=== PATIENT | female | born 1955 | race Two or more races ===

== ENCOUNTER 2024-03-19 17:16 | Emergency (ER) | payer OTHER ==
[~2024-03-19] VITALS: Ht 154.9 cm; Wt 72.6 kg
[~2024-03-19 17:16] MED LIST: BREO ELLIPTA 21 EACH IH; CRESTOR10 MG PO; LEVO-T50 MCG PO; MONTELUKAST SOD10 MG PO; PEPCID40 MG PO; PERCOCET 5-3251 EACH PO; PROTONIX20 MG PO; RAYOS1 MG; VENTOLIN HFA18 GM IH; ZYRTEC10 M3 PO
[2024-03-19] MEDS ORDERED: HORIZANT300 MG (17:58)
[2024-03-19] MEDS ORDERED: 0.9 % SODIUM CHLORIDE 500 ML IV ONE (20:30)
[2024-03-19] MEDS ORDERED: FAMOTIDINE/PF 20 MG/2 ML VIAL IV ONE (20:30)
[2024-03-19] MEDS ORDERED: KETOROLAC TROMETHAMINE 30 MG VIAL IV ONE (20:30)
[2024-03-19] MEDS ORDERED: FAMOTIDINE/PF 20 MG/2 ML VIAL ONE (20:52)
[2024-03-19] MEDS ORDERED: KETOROLAC TROMETHAMINE 30 MG VIAL ONE (20:52)
[2024-03-19 21:23] LABS: HEMATOCRIT 39.4 % (36.0-45.00); HEMOGLOBIN 13.1 g/dL (12.0-15.00); MEAN CELL VOLUME 102.1 fL (80.00-100.00); MEAN CORPUSCULAR HGB CONC 33.3 g/dl (32.0-36.0); PLATELET COUNT 438 K/uL (150-450); RED BLOOD COUNT 3.86 M/uL (4.00-6.00); RED CELL DISTRIBUTION WIDTH 14.1 % (11.5-14.5)
[2024-03-19 21:57] LABS: PH,URINE 5.5 (5.0-8.0); URINE APPEARANCE Clear; URINE BILIRRUBIN Negative (NEGATIVE); URINE BLOOD Negative; URINE COLOR Yellow; URINE GLUCOSE Negative (NEGATIVE); URINE KETONE Negative (NEGATIVE); URINE LEUKOCYTE Trace; URINE NITRATE Negative; URINE PROTEIN Negative (NEGATIVE); URINE UROBILINOGEN 0.2 E.U./dl
[2024-03-19 21:58] LABS: PARTIAL THROMBOPLASTIN TIME 27.9 SECONDS (22.0-34.0); PROTHROMBIN TIME 10.9 SECONDS (9.0-11.5)
[2024-03-19 22:01] LABS: URINE BACTERIA 1466.1 uL (0.0-1933); URINE EPITHELIAL CELLS 4.7 uL (0.0-38.8); URINE RBC 2.3 uL (0.0-20.8); URINE WBC 5.2 uL (0.0-23.2)
[2024-03-19 22:06] LABS: ALBUMIN 4.1 gm/dL (3.4-5.0); BILIRUBIN TOTAL 0.39 mg/dL (0.3-1.2); CALCIUM 9.9 mg/dL (8.5-10.1); CREATININE SERUM 0.67 mg/dL (0.55-1.02); GFR 87.01; GLOBULINA 3.9 G/DL (2.4-3.5)
[2024-03-19] MEDS ORDERED: BACTRIM DS TAB1 EACH PO (23:26)
== END 2024-03-19 23:40 ==
LOC: ER 17:16
PROVIDERS: Emergency Medicine
DX: N30.90 Cystitis, unspecified without hematuria (principal); R10.9 Unspecified abdominal pain; I10 Essential (primary) hypertension; E03.8 Other specified hypothyroidism; Z88.0 Allergy status to penicillin
CPT/HCPCS: 36415; 74177; 96365; 96366; 99284; J1885; J3490; J7042; Q9965